=== PATIENT | female | born 1935 | race Caucasian/White ===

== ENCOUNTER 2021-05-06 21:09 | Observation (INO) | payer MEDICARE, OTHER, SELFPAY ==
[2021-05-07] VITALS (14 sets, daily range): BP systolic 102–119; BP diastolic 53–69; PULSE 72–99; RESP 16–18; TEMP 36.4–36.8; O2SAT 95–98; BMI 27.5
[2021-05-07] MEDS: diphenhydrAMINE 50 mg/mL SDV 1mL 25 MG IVP (01:03)
[2021-05-07] MEDS: sodium chloride 0.9% 1,000 ML 75 ML IV (05:11)
--- NOTE | 2021-05-07 05:36 | PM.HP ---
Providers/Chief Complaint Admitting Physician: Herber Álvarez MD Chief Complaint: Food Bolus Stuck History of Present Illness Chief Complaint: Vomiting History of present illness: Ms. Tammy Avendaño is a pleasant 86 year old female presented to outside facility [facility] with history of vomiting. Apparently the patient had a meal of steak at a restaurant earlier the day of her presentation which was yesterday around 1 PM. Thereafter started to have symptoms of vomiting and spitting up phlegm. Patient had a similar episode about 15 years ago and the same sensation of spitting she had and that resolved on its own. No hematemesis. Or odynophagia. Patient mentioned that she had a small piece of steak at the restaurant and she did not feel good and afterwards went to the restroom she started to have vomitus of phlegm but no blood and when she went to the hospital later on she did expel a piece of steak that was not shared by me this part of the history and she felt better afterwards. Yesterday morning she did have scrambled eggs for breakfast and was okay the night before she had steak salmon and was fine as well. At the outside facility patient undergone blood work that showed WBC count of 8.6, hemoglobin 12.9 and platelet count of 460. Serum creatinine of 3 glucose of 191, sodium 139 potassium 4.6, otherwise unremarkable blood work. Except for lactic acid 3.2 with a normal range between 0.7 and 2.1 Further work-up done by Dr. 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 The site of origin of the mesenteric metastases may be cystic and solid mass in the right pelvis measuring 7.1 x 4.3 cm. Rectocele wall thickening. Cannot rule out neoplasm versus inflammation. Diverticulosis of the colon and sigmoid colon wall thickening are similar to the previous CT. Cholecystectomy. Hiatal hernia and fluid distention of the esophagus. Multifocal vascular calcification including coronary arteries.renal scarring is much increased from the previous CT and there are multiple bilateral renal calculi. I did receive a call from the ER of [facility] for potential food disimpaction. Clinical rounds patient denies any abdominal or chest pain some discomfort in the retrosternal area. Apparently after she did expel the piece of steak she felt better. She reports that she does not recall any history of EGD but she did have a colonoscopy few years ago and was told is okay. Passing gas and having bowel movements and no evidence of bowel obstruction. Denies any other constitutional symptoms. Patient also reports that she had history of kidney stones bilateral in nature and had a partial left nephrectomy via a left flank incision. 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 Review of Systems General: Reports: 10 or more systems reviewed and unremarkable except in HPI and below Medications/Allergies Allergies Allergy/AdvReac Type Severity Reaction Status Date / Time celecoxib [From Celebrex] Allergy Intermediate ALGY-Rash Verified 05/07/21 06:05 Vitals/I&O/Wt Last Vital Signs Temp 97.7 F 05/07/21 03:20 Pulse 99 05/07/21 03:20 Resp 18 05/07/21 03:20 BP 111/65 05/07/21 03:20 Pulse Ox 97 05/07/21 03:20 05/06/21 05/06/21 05/07/21 14:59 22:59 06:59 Output Total 450 / 450 Balance -450 / -450 Weight last 48 hrs Weight 155 lb 9 oz Physical Exam Const: COMMON NORMALS: no acute distress and patient oriented x3 GENERAL APPEARANCE: cooperative ORIENTATION/CONSCIOUSNESS: Yes awake, Yes oriented to person, Yes oriented to place and Yes oriented to time HENMT: COMMON NORMALS: normocephalic HEAD & SCALP: normocephalic Eye: COMMON NORMALS: Equal, round and reactive pupils present and no scleral icterus PUPIL: Yes Equal, round and reactive pupils present Neck/C-Spine: NECK IMAGES: 1. No evidence no evidence of crepitus or swelling Lymph: LYMPHATIC: no lymphadenopathy noted Chest: COMMONS NORMALS: normal inspection of the chest Resp: COMMON NORMALS: normal respiratory effort and clear to auscultation bilaterally AUSCULTATION: clear to auscultation bilaterally Cardio: COMMON NORMALS: S1 normal heart sound present and S2 normal heart sound present; negative for No murmurs present (Cardio) HEART SOUNDS: S1 normal heart sound present and S2 normal heart sound present GI: COMMON NORMALS: Soft to palpation; negative for No hepatosplenomegaly present INSPECTION: Yes normal to inspection PALPATION: Yes Soft to palpation, No Firmness to palpation present (GI), No Tenderness to palpation present (GI), No Guarding due to palpation present (GI), No Rigid due to palpation and No No hepatosplenomegaly present Neuro: COMMON NORMALS: patient oriented x3 SENSORIUM/ORIENTATION: Yes oriented to person, Yes oriented to place and Yes oriented to time Psych: COMMON NORMALS: mental status grossly normal Skin: COMMON NORMALS: no rashes or lesions noted GENERAL SKIN EXAM: no rashes or lesions noted A&P Assessment and plan (1) Food impaction of esophagus: Plan of care; After thorough history and physical examination and reviewing the chart and images of the CT scan with my personal interpretation of the images, that showed large hiatal hernia it is difficult to see a distinct food impaction or esophageal mass without oral contrast. IV fluid resuscitate normal saline 75 mL/h NPO Zofran for nausea and vomiting Protonix 40 mg IV Plan to perform a diagnostic esophagogastroduodenoscopy with possible biopsy in the GI lab. With possible food disimpaction I discussed with the patient in detail the risk,benefits,alternatives and indications.The risk of aspiration, bleeding, soft tissue injury, perforation of the stomach/esophagus and other potential concomitant complications were explained to the patient in details,aslo the potential need for Thoracic and or Abdominal surgery to repair any complications.The patient understood this well and did agree to proceed. Rationale was carefully and clearly discussed with the patient.Appropriate informed consent have been reviewed and signed All questions have been answered and all concerns have been addressed to patient's satisfaction. Status: Acute (2) Abnormal CT of the abdomen: Further work-up further work-up will be required to rule out potential underlying malignancy Will plan as an outpatient order a PET CT scan if possible Retrieve outside records Return to surgery office return to surgery OFFICE Assurance and education All questions have been answered and all concerns have been addressed to patient's satisfaction. Status: Acute Attestations Medical Necessity Statement*: Observation status for IV fluid hydration and potential EGD Time Spent in Patient Care: 16 - 35 minutes (>than 50% of time spent in counselling and/or direct pt care on unit). Coding Level of Care Code Acute Pelletizer Tender for Chg Fwd Exam Comprehensive Diagnoses Food impaction of esophagus T18.128A Abnormal CT of the abdomen R93.5
[2021-05-07] MEDS: pantoprazole 40 mg SDV IVP (05:40)
[2021-05-07] MEDS: sodium chloride 0.9% 1,000 ML 30 ML IV (07:30)
--- NOTE | 2021-05-07 07:53 | ANES.PREANE2 ---
Pre-Anesthetic Assessment Pre-Anesthetic Assessment: Height/Weight: Height 1.6 m Weight 70.562 kg Temp Pulse Resp BP Pulse Ox 97.7 F 99 18 111/65 97 05/07/21 03:20 05/07/21 03:20 05/07/21 03:20 05/07/21 03:20 05/07/21 03:20 Proposed Procedure: Operation Date: 05/07/21 08:00 Proposed Procedures p EGD(Not Applicable) - Herber Álvarez MD Familial anesthetic complications: None Was Beta Gautam taken within 24 hours: N/A Was Clonidine taken within 24 hours: N/A Social: Social History: No alcohol and No tobacco Exam: Pre-Anes Outpt Exam: alert, oriented x 3, clear to auscultation bilaterally and regular rate & rhythm Airway: Submandibular: WNL Cervical ROM: WNL MP: 2 Dentition: Chipped Pulmonary: Pulmonary: None reported CV/HEM: CV/HEM: None reported : Comments: Left nephrectomy Hepatic: Hepatic: None reported GI: Comments: Food impaction suspected Hiatal hernia Mesenteric metastases noted on CT Metabolic: Metabolic: Thyroid Comments: Hypothyoroid Musc/skel: Musc/skel: None reported Neuropsych: Neuropsych: None reported Anesthetic Plan: ASA status: 3 Anesthesia: Anesthesia Evaluation and MAC Risk of > 500 ml blood loss (7ml/kg in children): No Meds/Allergies Current Medications: Current Medications Generic Name Dose Route Start Last Admin Trade Name Freq PRN Reason Stop Dose Admin Sodium Chloride 1,000 mls @ 75 ml s/hr 05/07/21 00:45 05/07/21 05:11 Sodium Chloride 0.9% IV 75 mls/hr .[id number] AROLDO Administration Data Anesthesia Cardiac Studies: No Data to Display
--- NOTE | 2021-05-07 07:59 | ANE.PACU2 ---
Inpatient post-anesthesia follow up: Vital signs: Temperature 97.7 F Pulse Rate 99 Respiratory Rate 18 Blood Pressure 111/65 Pulse Oximetry 97 Oxygen Delivery Me thod Room Air Oxygen Flow Rate Fraction of Inspir ed Oxygen
--- NOTE | 2021-05-07 08:21 | PM.SDS ---
Short Stay Summary Providers Date of Admit/Discharge: 05/07/21 Attending Provider: Herber Álvarez MD Chief Complaint: Food Bolus Stuck HPI History of Present Illness Ms. Tammy Avendaño is a pleasant 86 year old female presented to outside facility [facility] with history of vomiting. Apparently the patient had a meal of steak at a restaurant earlier the day of her presentation which was yesterday around 1 PM. Thereafter started to have symptoms of vomiting and spitting up phlegm. Patient had a similar episode about 15 years ago and the same sensation of spitting she had and that resolved on its own. No hematemesis. Or odynophagia. Patient mentioned that she had a small piece of steak at the restaurant and she did not feel good and afterwards went to the restroom she started to have vomitus of phlegm but no blood and when she went to the hospital later on she did expel a piece of steak that was not shared by me this part of the history and she felt better afterwards. Yesterday morning she did have scrambled eggs for breakfast and was okay the night before she had steak salmon and was fine as well. At the outside facility patient undergone blood work that showed WBC count of 8.6, hemoglobin 12.9 and platelet count of 460. Serum creatinine of 3 glucose of 191, sodium 139 potassium 4.6, otherwise unremarkable blood work. Except for lactic acid 3.2 with a normal range between 0.7 and 2.1 Further work-up done by Dr. 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 The site of origin of the mesenteric metastases may be cystic and solid mass in the right pelvis measuring 7.1 x 4.3 cm. Rectocele wall thickening. Cannot rule out neoplasm versus inflammation. Diverticulosis of the colon and sigmoid colon wall thickening are similar to the previous CT. Cholecystectomy. Hiatal hernia and fluid distention of the esophagus. Multifocal vascular calcification including coronary arteries.renal scarring is much increased from the previous CT and there are multiple bilateral renal calculi. I did receive a call from the ER of [facility] for potential food disimpaction. Clinical rounds patient denies any abdominal or chest pain some discomfort in the retrosternal area. Apparently after she did expel the piece of steak she felt better. She reports that she does not recall any history of EGD but she did have a colonoscopy few years ago and was told is okay. Passing gas and having bowel movements and no evidence of bowel obstruction. Denies any other constitutional symptoms. Patient also reports that she had history of kidney stones bilateral in nature and had a partial left nephrectomy via a left flank incision. 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 Review of Systems General: Reports: 10 or more systems reviewed and unremarkable except in HPI and below Home Meds/Allergies Home Medications and Allergies Allergies Allergy/AdvReac Type Severity Reaction Status Date / Time celecoxib [From Celebrex] Allergy Intermediate ALGY-Rash Verified 05/07/21 10:43 PFSH Acute PFSH: Medical History Food impaction of esophagus Vitals/I&O/Wt Last Vital Signs Temp 97.7 F 05/07/21 03:20 Pulse 99 05/07/21 03:20 Resp 18 05/07/21 03:20 BP 111/65 05/07/21 03:20 Pulse Ox 97 05/07/21 03:20 05/06/21 05/07/21 05/07/21 22:59 06:59 14:59 Output Total 450 / 450 Balance -450 / -450 Weight last 48 hrs Weight 155 lb 9 oz Physical Exam Const: COMMON NORMALS: no acute distress and patient oriented x3 GENERAL APPEARANCE: cooperative ORIENTATION/CONSCIOUSNESS: Yes awake, Yes oriented to person, Yes oriented to place and Yes oriented to time HENMT: COMMON NORMALS: normocephalic HEAD & SCALP: normocephalic Eye: COMMON NORMALS: Equal, round and reactive pupils present and no scleral icterus PUPIL: Yes Equal, round and reactive pupils present Lymph: LYMPHATIC: no lymphadenopathy noted Chest: COMMONS NORMALS: normal inspection of the chest Resp: COMMON NORMALS: normal respiratory effort and clear to auscultation bilaterally AUSCULTATION: clear to auscultation bilaterally Cardio: COMMON NORMALS: S1 normal heart sound present and S2 normal heart sound present; negative for No murmurs present (Cardio) HEART SOUNDS: S1 normal heart sound present and S2 normal heart sound present GI: COMMON NORMALS: Soft to palpation; negative for No hepatosplenomegaly present INSPECTION: Yes normal to inspection PALPATION: Yes Soft to palpation, No Firmness to palpation present (GI), No Tenderness to palpation present (GI), No Guarding due to palpation present (GI), No Rigid due to palpation and No No hepatosplenomegaly present Neuro: COMMON NORMALS: patient oriented x3 SENSORIUM/ORIENTATION: Yes oriented to person, Yes oriented to place and Yes oriented to time Psych: COMMON NORMALS: mental status grossly normal Skin: COMMON NORMALS: no rashes or lesions noted GENERAL SKIN EXAM: no rashes or lesions noted Hospital Course Hospital Course Patient undergone uneventful diagnostic EGD and was found to have large hiatal hernia, gastritis and duodenitis there was no evidence of strictures or esophageal masses or food boluses. Patient tolerated p.o. intake in the form of clear liquid diet after the procedure and maintained to have adequate urine output and stable vital signs. And met the appropriate criteria for safe discharge home. Discharge Summary This is a pleasant 86 years old female patient had a food bolus impaction and was worked up at an outside facility and patient was transferred to my service here at [facility] for further investigation in the form of diagnostic EGD. Condition resolved and patient will be discharged home on PPI therapy Raise the head of the bed 4-6 inches Frequent small meals through the day Avoid smoking or Chewing Tobacco Avoid excess coffee, tea, and other caffeinated beverages Avoid garments that fit tightly through the abdomen Avoid eating before going to sleep Avoid nonsteroidal anti-inflammatory drugs (NSAIDs) when possible Anti-reflux diet Anti-reflux medications as prescribed Emphasis on weight management Condition to stay on soft GI diet. Avoid solid food in the form of steak bread. Patient will require further work-up due to the incidental findings on her CT scan of the abdomen and concerning for neoplastic process. Diagnoses at Discharge Discharge Diagnosis (1) Food impaction of esophagus: Status: Resolved Permanent problem details: Modified barium swallow as an outpatient speech limit size of spoonfuls to 1 teaspoon Compensatory techniques: Double swallow (2) Abnormal CT of the abdomen: Status: Acute Permanent problem details: Patient will require further work-up as an outpatient Discharge Plan Discharge Patient Disposition: Home Condition: Stable Prescriptions: New omeprazole 20 mg capsule,delayed release(DR/EC) 20 mg PO DAILY 30 Days Qty: 30 RF: 3 Discharge Orders: Discharge Order (Routine); Ordered 05/07/21 Ordered By: Herber Álvarez Referrals: Herber Álvarez MD [Physician] - (Return to the surgery office IN 1 week in person) Discharge Diet: GI Soft Discharge Activity: Increase activity as tolerated Patient Instructions: GI Discharge Instructions, Opioid Safety Activity Restrictions/Additional Instructions: Raise the head of the bed 4-6 inches Frequent small meals through the day Avoid smoking or Chewing Tobacco Avoid excess coffee, tea, and other caffeinated beverages Avoid garments that fit tightly through the abdomen Avoid eating before going to sleep Avoid nonsteroidal anti-inflammatory drugs (NSAIDs) when possible Anti-reflux diet Anti-reflux medications as prescribed Emphasis on weight management Patient needs to be educated about the importance to follow-up as an outpatient at surgical services to obtain a modified barium swallow and further work-up regarding the CT scan findings Attestations Medical Necessity Statement*: Observation status for hydration and endoscopy Time Spent in Patient Care*: greater than 30 min Specific Discharge Activities: Specific discharge activities: educating patient Status at Discharge: Cognitive status at discharge: cognitively intact, Behavioral status at discharge: cooperative, Functional status at discharge: independent ambulation Overall status at discharge: patient is progressing back to baseline Quality Metrics Clinical Quality Measures: During this hospital stay, did patient experience: None Coding Level of Care Code Acute Producer for Chg Fwd Exam Comprehensive Diagnoses Food impaction of esophagus T18.128A Abnormal CT of the abdomen R93.5
--- NOTE | 2021-05-07 23:52 | ANE.PACU2 ---
Inpatient post-anesthesia follow up: Airway intact: Yes Vital signs: Temperature 98.3 F Pulse Rate 96 Respiratory Rate 18 Blood Pressure 102/59 Pulse Oximetry 97 Oxygen Delivery Me thod Room Air Oxygen Flow Rate Fraction of Inspir ed Oxygen Hydration adequate: Yes Nausea and vomiting: No Pain level: 1 Mental status: Baseline
== END 2021-05-07 14:43 | disposition home or self-care (01) ==
PROVIDERS: Admitting Provider Surgery; Visit Provider Surgery
PROC: 0DJ08ZZ Inspection of Upper Intestinal Tract, Via Natural or Artificial Opening Endoscopic (ICD-10-PCS; CPT 43235; principal; 2021-05-07 08:00)
DX: T18.128A Food in esophagus causing other injury, initial encounter (principal); R93.5 Abnormal findings on diagnostic imaging of other abdominal regions, including retroperitoneum; K21.9 Gastro-esophageal reflux disease without esophagitis; K44.9 Diaphragmatic hernia without obstruction or gangrene; K29.70 Gastritis, unspecified, without bleeding; K29.80 Duodenitis without bleeding
CPT/HCPCS: 43239; 88305; 88342; C9113; G0378; G0379; J0330; J1100; J1200; J2405; J2704; J7030

== ENCOUNTER → 2021-05-16 13:45 | Outpatient (BNVA) | payer MEDICARE, OTHER, SELFPAY | PROVIDERS: Visit Provider Surgery | DX: Z20.822 Contact with and (suspected) exposure to COVID-19 (principal); R19.00 Intra-abdominal and pelvic swelling, mass and lump, unspecified site; R93.5 Abnormal findings on diagnostic imaging of other abdominal regions, including retroperitoneum | CPT/HCPCS: 82105; 82378; 86301; 86304; 87635 ==

== ENCOUNTER 2021-05-19 07:51 | Day surgery (SDC) | payer MEDICARE, OTHER, SELFPAY ==
[2021-05-17 09:43] VITALS: BMI 26.0
--- NOTE | 2021-05-19 08:19 | ANES.PREANE2 ---
Pre-Anesthetic Assessment Pre-Anesthetic Assessment: Height/Weight: Height 1.6 m Weight 66.678 kg Preop Diagnosis: Abdominal mass Proposed Procedure: Operation Date: 05/19/21 10:00 Proposed Procedures p Colonoscopy 09914 Z12.11(Not Applicable) - Herber Álvarez MD Familial anesthetic complications: None Was Beta Gautam taken within 24 hours: N/A Was Clonidine taken within 24 hours: N/A Last intake: > 8 hrs Social: Social History: No alcohol and No tobacco Exam: Pre-Anes Outpt Exam: alert, oriented x 3, clear to auscultation bilaterally and regular rate & rhythm Airway: Cervical ROM: WNL MP: 2 Dentition: Other (missing) Pulmonary: Comments: congestion/sinus/allergies CV/HEM: CV/HEM: HTN : : Chronic renal Insufficiency Comments: No L nephrectomy, just decreased functioning GI: GI: GERD and Hiatus hernia Metabolic: Metabolic: Hyperlipidemia and Thyroid Anesthetic Plan: ASA status: 3 Anesthesia: MAC Risk of > 500 ml blood loss (7ml/kg in children): No PFSH Anesthesia PFSH: Medical History Food impaction of esophagus Modified barium swallow as an outpatient speech limit size of spoonfuls to 1 teaspoon Compensatory techniques: Double swallow Social History Smoking and tobacco status: never smoked Data Anesthesia Cardiac Studies: No Data to Display
[2021-05-19 09:21] VITALS: BP 115/61; PULSE 82; RESP 18; TEMP 36.1
[2021-05-19] MEDS: sodium chloride 0.9% 1,000 ML 30 ML IV (09:26)
--- NOTE | 2021-05-19 09:37 | W.PM.OPSUD ---
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
[2021-05-19 10:45] VITALS: BP 105/52; PULSE 99; RESP 12; TEMP 36.1; O2SAT 94
--- NOTE | 2021-05-19 10:48 | ANE.PACU2 ---
Inpatient post-anesthesia follow up: Airway intact: Yes Vital signs: Temperature 97 F Pulse Rate 82 Respiratory Rate 18 Blood Pressure 115/61 Pulse Oximetry Oxygen Delivery Me thod Room Air Oxygen Flow Rate Fraction of Inspir ed Oxygen Hydration adequate: Yes Nausea and vomiting: No Pain level: 1 Mental status: Baseline
[2021-05-19 11:01] VITALS: BP 113/60; PULSE 78; RESP 16; O2SAT 98
--- NOTE | 2021-05-19 11:19 | FL_ITS ---
WS: [id number] Exam: FL barium enema [id number] Date/Time of Exam: 05/19/2021 11:23 AM Reason For Exam: Sigmoid colon stricture Full column barium is performed. Preliminary survey of the abdomen shows a moderate amount of gas in the large bowel secondary to attempted colonoscopy. Signs of prior cholecystectomy. The colon fills to the cecum with reflux into the terminal ileum. There was no sign of colonic mass o r constricting lesion. There is marked diverticulosis of the sigmoid colon. Several diverticuli also seen in the descending colon. The haustral pattern is otherwise well maintained. The colon is not dis placed. The colon empties adequately. FL/FL barium enema [id number] IMPRESSION: 1. Moderately severe diverticulosis in the sigmoid and lower descending colon. 2. No evidence of colonic mass or constricting lesion.
== END 2021-05-19 11:40 | disposition home or self-care (01) ==
PROVIDERS: PCP Student in an Organized Health Care Education/Training Program; Visit Provider Surgery
PROC: 0DJD8ZZ Inspection of Lower Intestinal Tract, Via Natural or Artificial Opening Endoscopic (ICD-10-PCS; CPT 45330; principal; 2021-05-19 10:00)
DX: Z12.11 Encounter for screening for malignant neoplasm of colon (principal); K57.30 Diverticulosis of large intestine without perforation or abscess without bleeding; I10 Essential (primary) hypertension; E78.5 Hyperlipidemia, unspecified
CPT/HCPCS: 45330; 74270; J2704; J7030

== ENCOUNTER 2021-06-13 09:34 | Outpatient (CLI) | payer MEDICARE, OTHER, SELFPAY ==
--- NOTE | 2021-06-13 10:15 | US_ITS ---
WS: [id number] TRANSABDOMINAL PELVIC ULTRASOUND HISTORY: Pelvic masses. Positive PET/CT and carcinomatosis seen on a CT from 05/06/2021. COMPARISON: 05/21/2021 and 05/06/2021 Prior hysterectomy. Neither ovary is identified as a discrete normal structure. There is a large lobulated soft tissue ma ss beginning in the midline from the high pelvis and extending to the RIGHT and LEFT but greatest to the LEFT. Mild peripheral increased vascularity within the solid components. There are areas of decre ased echogenicity but mostly increased echogenicity and very solid components. These findings are con sistent with peritoneal carcinomatosis. Lobulated hypoechoic mass in the RIGHT adnexa may be an abnor mal ovary. Mass measures at least 8.2 x 5.[address] there was a lobulated cystic mass in the RI GHT adnexa which corresponds to the this region by ultrasound. I favor this is an abnormal RIGHT ovar y with lobulated neoplastic cystic component. No ascites identified. US/US pelvic complete* [id number] IMPRESSION: 1. Hypoechoic mass, multi nodular in the RIGHT adnexa measures at least 8.2 x 5.3 cm. 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 Corre sponds to the RIGHT adnexal mass seen on the CT of 05/06/2021. 2. Peritoneal carcinomatosis identified in the pelvis. Also similar to the karely or CT.
== END 2021-06-13 09:35 | disposition home or self-care (01) ==
LOC: RAD 09:35
PROVIDERS: PCP Student in an Organized Health Care Education/Training Program; Visit Provider Surgery
DX: R93.5 Abnormal findings on diagnostic imaging of other abdominal regions, including retroperitoneum (principal); R19.00 Intra-abdominal and pelvic swelling, mass and lump, unspecified site; C78.6 Secondary malignant neoplasm of retroperitoneum and peritoneum
CPT/HCPCS: 76856

== ENCOUNTER 2021-10-17 15:23 | Outpatient (CLI) | payer MEDICARE, OTHER, SELFPAY ==
[2021-10-17 17:13] LABS: Hematocrit 27.9 % (37.0-47.0); Hemoglobin 8.6 g/dL (11.5-15.3); Mean Corpuscular HGB Conc 30.8 g/dL (30.0-36.0); Mean Corpuscular Hemoglobin 33.9 pg (28.0-34.0); Mean Corpuscular Volume 109.8 fl (81-99); Mean Platelet Volume 9.3 fL (7.4-10.4); Platelet Count 274 10^3/cmm (130-400); Red Blood Count 2.54 10^6/uL (4.1-5.3); Red Cell Distribution Width 18.9 % (12.1-15.1); White Blood Count 3.2 10^3/uL (4.0-10.0)
[2021-10-17 17:35] LABS: Alanine Aminotransferase 12 U/L (0-33); Albumin Level 3.7 g/dL (3.5-5.2); Alkaline Phosphatase 107 IU/L (35-105); Anion Gap 20.5 (5-19); Aspartate Amino Transferase 16 U/L (0-32); Blood Urea Nitrogen 36 mg/dL (8-23); Calcium 9.8 mg/dL (8.5-10.5); Carbon Dioxide 22 mmol/L (22-29); Chloride 103 mmol/L (98-107); Globulin 3.1 g/dL (1.3-4.6); Glucose 79 mg/dL (65-115); Osmolality Calculated 301 mOsm/kg (285-295); Potassium 3.5 mmol/L (3.5-5.1); Sodium 142 mmol/L (136-145); Total Bilirubin 0.2 mg/dL (0.15-1.2); Total Protein 6.8 g/dL (6.6-8.7)
[2021-10-17 18:27] LABS: Absolute Neutrophil 1.7 10^3/cmm (1.4-6.5); Absolute Segmented Neutrophil 1.7 10/cmm (1.6-7.1); Dohle Bodies 1+; Eosinophils 3 %; Lymphocytes 54 %; Monocytes Absolute 0.3 10^3/cmm (0.1-0.6); Platelet Estimate Normal (Normal); Segmented Neutrophils 53 %; Total Cells Counted 100 (0-100); Toxic Granulation 1+
== END 2021-10-17 15:24 | disposition home or self-care (01) ==
LOC: LAB 15:30
PROVIDERS: PCP Student in an Organized Health Care Education/Training Program; Visit Provider Obstetrics & Gynecology Gynecologic Oncology
DX: N19 Unspecified kidney failure (principal); C56.1 Malignant neoplasm of right ovary
CPT/HCPCS: 80053; 85007; 85027